=== PATIENT | female | born 1975 | race Asian ===

== ENCOUNTER 2019-04-09 08:20 | Emergency (ER) | payer OTHER ==
[~2019-04-09] VITALS: Ht 160 cm; Wt 74.4 kg
[2019-04-09 08:30] VITALS: BP 104/70; Ht 160 cm; Wt 74.4 kg
== END 2019-04-09 11:58 | disposition home or self-care (01) ==
LOC: ED 08:20
DX: J18.1 Lobar pneumonia, unspecified organism (principal); J98.01 Acute bronchospasm
CPT/HCPCS: 87804; J0696; J2930; J7613; J7644